=== PATIENT | male | born 1965 | race Hispanic/Latino ===

== ENCOUNTER 2018-03-10 12:12 | Emergency (ER) | payer MEDICAID ==
[2018-03-10] MEDS ORDERED: Tetanus/Diphtheria Toxoids 0.5 ml Syringe IM ONE ×2 (13:23→13:30)
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
--- NOTE | 2018-03-10 14:34 | CT ---
PROCEDURE: CT scan brain dated 03/10/2018 HISTORY: Injury COMPARISON: Correlation made with concurrent CT scan maxillofacial skeleton TECHNIQUE: Axial computed tomography images were obtained through the head/brain without intravenous contrast. Radiation dose: Total exam DLP = 1193.2 mGy-cm. This CT exam was performed using one or more of the following dose reduction techniques: Automated exposure control, adjustment of the mA and/or kV according to patient size, and/or use of iterative reconstruction technique. FINDINGS: HEMORRHAGE: No acute parenchymal, subarachnoid or extra-axial hemorrhage. BRAIN: No evidence of large acute infarct. No obvious parenchymal nor extra-axial masses or collections seen on this noncontrast study. Mild generalized volume loss. VENTRICLES: No obstructive hydrocephalus CALVARIUM: There are no acute calvarial fractures. PARANASAL SINUSES: Unremarkable as visualized. No significant inflammatory changes. MASTOID AIR CELLS: Unremarkable as visualized. No inflammatory changes. OTHER FINDINGS: None. IMPRESSION: No acute no acute intracranial hemorrhage. Mild generalized volume loss.
--- NOTE | 2018-03-10 14:49 | CT ---
PROCEDURE: CT MAXILLOFACIAL BONES WITHOUT CONTRAST HISTORY: Injury. COMPARISON: Comparison made with concurrent CT scan of the brain. TECHNIQUE: Contiguous helical/transaxial CT images of the maxillofacial bones were obtained. Coronal and sagittal reformats were generated. Radiation dose: Total exam DLP = 912.67 mGy-cm. This CT exam was performed using one or more of the following dose reduction techniques: Automated exposure control, adjustment of the mA and/or kV according to patient size, and/or use of iterative reconstruction technique. . FINDINGS: NASAL BONES: Unremarkable. . . ORBITS: Unremarkable. PARANASAL SINUSES/ MASTOIDS: Clear. MAXILLA: No evidence of acute displaced fracture nor dislocation. Left premaxillary soft tissue swelling extends superiorly into the soft tissues of the left infraorbital region. MANDIBLE/ TEMPOROMANDIBULAR JOINTS: Unremarkable. SKULL BASE: Unremarkable. TEMPORAL BONES: Middle ears and mastoid grossly unremarkable. OTHER FINDINGS: Note made of mild anterior subluxation C3 over C4. . There is fairly significant degenerative facet joint changes on the left side at the C3-C4 level with a small lucency traversing the left posterior elements. Findings could represent an old fracture as the margins appear well corticated. Clinical correlation with surgical history recommended. Multilevel degenerative spondylosis is present. Poor dentition. Note also made of multiple small nonspecific bilateral cervical lymph nodes IMPRESSION: No evidence of acute maxillofacial skeletal fractures. Mild to moderate left premaxillary soft tissue swelling which extends superiorly into the infraorbital region. . Apparent old fracture deformity left posterior elements C3-C4 level with slight anterior subluxation of C3 over C4. These findings were conveyed to ER physician's graduate research assistant AMBROSE Juarez at approximately 2:45 p.m. with written down and read back verification. It was confirmed during this discussion that this patient did in fact have remote injury at this level.
[2018-03-10 15:19] VITALS: BP 108/59; PULSE 77; RESP 18; TEMP 97.6
[2018-03-10 16:08] VITALS: O2SAT 98
== END 2018-03-10 16:02 | disposition home or self-care (01) ==
LOC: C.ER 12:12
DX: S00.83XA Contusion of other part of head, initial encounter (principal); S09.90XA Unspecified injury of head, initial encounter; Y04.1XXA Assault by human bite, initial encounter; Z23 Encounter for immunization